=== PATIENT | female | born 1955 | race Caucasian/White ===

== ENCOUNTER 2023-10-07 10:48 | Outpatient (AMB) | payer MEDICARE, SELFPAY ==
--- NOTE | 2023-10-07 11:15 | AM.OFFWIN_ITS ---
Intake Vital Signs 10/07/23 11:38 Height 5 ft 4 in Weight 135 lb 8 oz BMI 23.3 BP 138/66 Blood Pressure Location Rt brachial Position Sitting Pulse 74 Pulse Source Pulse Oximeter Temp 98.6 F Temp Source Oral Pulse Oximetry (%) 97 Oxygen Delivery Method Room Air Intake Visit Reasons: [employer] Lungs~ congestion Intake Note: Pt is here today for lungs and congestion. Pt states symptoms started wks ago. Patient Tobacco Use Status: Never used Tobacco Allergies No Known Allergies Allergy (Verified 10/07/23 11:41) Do you need a note to return to daycare/school/sports/work: No HPI HPI Comments History of Present Illness Details This is a 67-year-old female with no stated past medical history presenting for evaluation of chest congestion with cough and fatigue that she has had for the past 1 week. Patient states that she did have fevers and chills 4 days ago but has not had any fevers since that time. Patient has been using [id number] cough syrup without relief of her. Patient denies having any recent sick contacts. [facility] Social History Patient Tobacco Use Status: Never used Tobacco Review of Systems Const All systems reviewed & are unremarkable except as noted in HPI and below Eyes Reports no additional complaints ENT Reports no additional complaints Card Reports no additional complaints and Denies dyspnea Resp Reports as per HPI, Reports cough, Denies hemoptysis, Denies pain with cough, Denies dyspnea and Denies wheezing Aller/Immun Denies wheezing Physical Exam Vital Signs: Last Vital Signs Temp 98.6 F 10/07/23 11:38 Pulse 74 10/07/23 11:38 BP 138/66 10/07/23 11:38 Pulse Ox 97 10/07/23 11:38 Oxygen Delivery Method Room Air 10/07/23 11:38 BMI result Body Mass Index 23.3 Const General: cooperative, healthy appearing, comfortable and no acute distress Nutritional Appearance: average body habitus Orientation/consciousness: patient oriented x3 Limitations: no limitations HEENT Head: Yes normal to inspection and Yes normocephalic Ears: hearing grossly normal bilaterally, external ears normal, TM's normal bilaterally and EAC's normal General nose exam: Normal external nose present Face and sinus: Yes normal facial exam Mouth: Normal oral and palatal mucosa present and moist mucous membranes Throat: Yes posterior oropharynx normal and Yes postnasal drainage Eyes General: appearance normal, both eyes and all related structures Eyelids: Yes eyelids normal Conjunctivae: conjunctivae normal Sclerae: sclerae normal Corneas: corneas normal Pupils: Equal, round and reactive pupils present Neck Lymphatic: no lymphadenopathy noted Resp Effort & Inspection: normal respiratory effort, able to speak in complete sentences, no audible wheezes, no cough, no respiratory distress and not tachypneic Auscultation: clear to auscultation bilaterally Cardio Rate: regular rate and not tachycardic Rhythm: regular rhythm Neuro General: patient oriented x3 Cranial nerves: Yes Equal, round and reactive pupils present Psych Appearance: grossly normal Mental Status: mental status grossly normal Insight: Good insight present (Psych) Judgement: Good judgement present (Psych) Assessment & Plan Assessment & Plan (1) Cough: Comment: SARS panel is ordered and pending given that she reports fevers over the past 1 week. Code(s): R05.9 - Cough, unspecified Qualifiers: Cough type: acute Qualified Code(s): R05.1 - Acute cough Plan: Mucinex OTC with increase clear fluids; Tylenol or ibuprofen if fever recurs. Orders: Orders SARS-CoV2/FLU/RSV Today R05.9 - Cough, unspecified Coding Level of Care Code Est Pt Level 3 (65295) Diagnoses Acute cough R05.1 Cough type: acute Time Spent (min) 20
[2023-10-07 11:38] VITALS: BP 138/66; PULSE 74; TEMP 37; O2SAT 97; BMI 23.3
== END 2023-10-07 14:05 | disposition home or self-care (01) ==
PROVIDERS: PCP Internal Medicine; Visit Provider Physician Assistant
DX: R05.1 Acute cough (principal)
CPT/HCPCS: 99213

== ENCOUNTER 2023-10-07 13:31 | Outpatient (REF) | payer MEDICARE, SELFPAY ==
[2023-10-07 14:14] LABS: Influenza A PCR NEGATIVE (Negative); Influenza B PCR NEGATIVE (Negative); Resp Syncy Virus RNA Qual PCR NEGATIVE (Negative); SARS COV2 PCR INHOUSE NEGATIVE (Negative)
== END 2023-10-07 13:32 | disposition home or self-care (01) ==
LOC: HO.LNP 13:31
PROVIDERS: Visit Provider Physician Assistant
DX: R05.9 Cough, unspecified (principal); Z11.52 Encounter for screening for COVID-19; Z20.828 Contact with and (suspected) exposure to other viral communicable diseases
CPT/HCPCS: 0241U

== ENCOUNTER 2024-11-07 15:35 | Outpatient (AMB) | payer MEDICARE, SELFPAY ==
[2024-11-07 15:36] VITALS: BP 128/70; PULSE 84; TEMP 36.7; O2SAT 98; BMI 24.9
--- NOTE | 2024-11-07 15:36 | AM.OFFWIN_ITS ---
Intake Vital Signs 3 11/07/24 15:36 Height 5 ft 4 in Weight 145 lb BMI 24.9 BP 128/70 Blood Pressure Location Rt brachial Position Sitting Pulse 84 Pulse Source Pulse Oximeter Temp 98.0 F Temp Source Oral Pulse Oximetry (%) 98 Oxygen Delivery Method Room Air Intake Visit Reasons: EP Tick bite, has not been feeling well since Patient Tobacco Use Status: Never used Tobacco Accompanied by: Self / Same As Patient Allergies No Known Allergies Allergy (Verified 11/07/24 15:36) Do you need a note to return to daycare/school/sports/work: No HPI HPI Comments 2 History of Present Illness0 Details 69 y/o female [facility]/o Tick Bite. Reports that yesterday she was [place] in [place], had a Tick bite right Upper Extremity (Anterior Bicep). Reports waking up this morning with body aches and a Red Rash. States that she did remove the Tick, immediately. Denies fevers, chills, headaches, nausea or vomiting. [facility] Medical History (Updated 11/07/24 @ 16:05 by Yessica Hernandez NP) Tick bite of upper arm Social History Patient Tobacco Use Status: Never used Tobacco Review of Systems Const All systems reviewed & are unremarkable except as noted in HPI and below Physical Exam Vital Signs: Last Vital Signs Temp 98.0 F 11/07/24 15:36 Pulse 84 11/07/24 15:36 BP 128/70 11/07/24 15:36 Pulse Ox 98 11/07/24 15:36 Oxygen Delivery Method Room Air 11/07/24 15:36 BMI result Body Mass Index 24.9 Const General: no acute distress Orientation/consciousness: patient oriented x3 Neuro General: patient oriented x3, gait normal and moves all extremities Extrem Right upper extremity: full ROM, normal capillary refill and shoulder/upper arm Details: normal ROM Shoulder/upper arm images: 2 1. Erythematous round/circular rash with dark center. No Tick present. Psych Speech and movement: Normal speech and movement present Assessment & Plan Assessment & Plan (1) Tick bite of upper arm: Code(s): S40.869A - Insect bite (nonvenomous) of unspecified upper arm, initial encounter; W57.XXXA - Bitten or stung by nonvenomous insect and other nonvenomous arthropods, initial encounter Qualifiers: Encounter type: initial encounter Laterality: right Qualified Code(s): S40.861A - Insect bite (nonvenomous) of right upper arm, initial encounter; W57.XXXA - Bitten or stung by nonvenomous insect and other nonvenomous arthropods, initial encounter Plan: Ordered Doxy 200 mg Once. Medications: New 2 doxycycline hyclate 200 mg (2 x 100 mg) PO ONCE 2 caps 0RF S40.861A - Insect bite (nonvenomous) of right upper arm, initial encounter, W57.XXXA - Bitten or stung by nonvenomous insect and other nonvenomous arthropods, initial encounter Coding Level of Care Code Est Pt Level 4 (18175) Diagnoses Tick bite of right upper arm, initial encounter S40.861A; W57.XXXA Encounter type: initial encounter Laterality: right Time Spent (min) 20
== END 2024-11-07 16:11 | disposition home or self-care (01) ==
PROVIDERS: PCP Internal Medicine; Visit Provider Nurse Practitioner Family
DX: S40.861A Insect bite (nonvenomous) of right upper arm, initial encounter (principal); W57.XXXA Bitten or stung by nonvenomous insect and other nonvenomous arthropods, initial encounter

== ENCOUNTER → 2024-11-07 15:35 | Outpatient (BNVA) | payer MEDICARE, SELFPAY | PROVIDERS: PCP Internal Medicine; Visit Provider Nurse Practitioner Family | DX: S40.861A Insect bite (nonvenomous) of right upper arm, initial encounter (principal); W57.XXXA Bitten or stung by nonvenomous insect and other nonvenomous arthropods, initial encounter | CPT/HCPCS: 99212 ==